=== PATIENT | male | born 1940 | race Caucasian/White ===

== ENCOUNTER 2020-05-25 08:01 | Day surgery (SDC) | payer MEDICARE ==
[2020-05-23 10:58] VITALS: BMI 25.6
[~2020-05-25 08:01] MED LIST: HYDROmorphone 0.5 MG/0.5 ML SYRINGE IVP PRN; MIDAZOLAM 2 MG/2 ML VIAL IV PRN; ONDANSETRON 4 MG/2 ML VIAL IVP ONE
[2020-05-25] MEDS: SODIUM CHLORIDE 0.9% 1,000 ML IV SCH (08:29)
[2020-05-25 08:31] LABS: Glucose,Whole Blood 131 mg/dL (75-99)
[2020-05-25 08:43] LABS: INR 3.7 (<1.2); Prothrombin Time 36.8 sec (9.0-12.0)
[2020-05-25 08:50] LABS: African American GFR (CKD) >90 (>60 ml/min/1.73 sqM); Anion Gap 7 mmol/L; Blood Urea Nitrogen 13 mg/dL (9-20); Carbon Dioxide 25 mmol/L (22-30); Chloride 105 mmol/L (98-107); Glucose 149 mg/dL (74-99); Non-African American GFR(CKD) 80 (>60 ml/min/1.73 sqM); Potassium 4.2 mmol/L (3.5-5.1); Sodium 137 mmol/L (137-145)
[2020-05-25 08:56] LABS: HCT 47.5 % (39.0-53.0); HGB 16.1 gm/dL (13.0-17.5); MCH 35.8 pg (25.0-35.0); MCV 105.5 fL (80.0-100.0); Macrocytosis Moderate; Mean Platelet Volume 7.4; Platelet Count 168 k/uL (150-450); WBC 5.8 k/uL (3.8-10.6)
[2020-05-25 09:25] LABS: Band Neutrophils % 1 %; Eosinophils # (M) 0.06 k/uL (0-0.7); Lymphocytes # (M) 1.04 k/uL (1.0-4.8); Monocytes # (M) 0.52 k/uL (0-1.0); Neutrophils % (M) 71 %; Nucleated Red Blood Cells 0 /100 WBC (0-0); Total Cells Counted 100
[2020-05-25] MEDS ORDERED: PHENYLEPHRINE-0.9% NACL SYG 1 MG/10 ML SYRINGE ONE (10:00)
[2020-05-25] MEDS ORDERED: LIDOCAINE 1% INJ 10MG/ML (20 ML MDV) ONE ×2 (10:00→10:13)
[2020-05-25] MEDS ORDERED: PROTAMINE SULFATE 10 MG/ML 5 ML VIAL IV ONE ×2 (10:00→15:11)
[2020-05-25] MEDS ORDERED: SUCCINYLCHOLINE CHLORIDE 100 MG/5 ML SYR IV ONE (10:00)
[2020-05-25] MEDS ORDERED: fentaNYL (PF) 50 MCG/ML 2 ML AMP ONE (10:00)
[2020-05-25] MEDS ORDERED: PROPOFOL 10 MG/ML 20 ML VIAL IV ONE (10:00)
[2020-05-25] MEDS ORDERED: FUROSEMIDE 10 MG/ML 2 ML VIAL ONE (10:00)
[2020-05-25] MEDS ORDERED: LIDOCAINE 1% INJ 10MG/ML (20 ML MDV) SQ ONE (10:41)
[2020-05-25] MEDS ORDERED: HEPARIN SOD,PORK IN 0.45% NACL 25,000 UNIT in 0.45% NACL 1 250ML.BAG IV ONE (10:42)
[2020-05-25] MEDS ORDERED: HEPARIN SODIUM (1,000 UNIT/ML) 1,000 UNIT in SODIUM CHLORIDE 0.9% 1,000 ML IRRIGATION ONE (10:42)
[2020-05-25] MEDS ORDERED: IOPAMIDOL-250 100ML BTL IV ONE (13:32)
[2020-05-25] MEDS ORDERED: ACETAMINOPHEN TAB 325 MG TAB PO PRN (15:56)
[2020-05-25] MEDS ORDERED: HYDROcodone/APAP 5-325MG 1 EACH TAB PO PRN (15:56)
--- NOTE | 2020-05-25 16:26 | P.PCN ---
Preoperative Diagnosis: Diagnosis Atrial fibrillation, symptomatic, refractory to therapy Atrial tachycardia sustained with RVR Result No left atrial appendage mass seen on intracardiac echo Calcific aortic leaflets with mild stenosis, evaluated during sinus rhythm Successful A. fib ablation/pulmonary vein isolation of all veins using cryo- ablation Complete entrance block in all 4 veins confirmed Transient phrenic nerve paresis, complete recovery RS PV cryoablation completed at an anterolateral level thereafter Focal atrial tachycardia, 8 o'clock position mitral annulus, successful ablation Linear ablation roof of the left atrium Atrial flutter ablation, successful, bidirectional block with differential pacing Esophageal deflection YES Large pulmonary veins Procedure details Patient was brought to the EP lab in a fasting state. Written informed consent was obtained prior to the procedure. Procedure performed under general anesthesia After initial muscle relaxant use, muscle relaxants were not given thereafter in order to assess phrenic nerve during procedure. Patient prepped and draped as per protocol Full cryo-set up with standard preparation of the cryoablation tools done. Femoral Venous access obtained on the right and left groins Venous and arterial Sheaths placed. Diagnostic catheters for the high right atrium, phrenic nerve stimulation and pacing, His bundle, RV and coronary sinus placed Intracardiac echo catheter placed. Long sheath placed in the right atrium Left and right transseptal catheterization performed under intracardiac echo guidance. Intravenous heparin with aCT above 300 Later, catheter positioning and balloon positioning in the left atrium, under intracardiac echo guidance Diagnostic EP study with Coronary sinus pacing and recording High right atrial pacing His bundle pacing Baseline measurements Tachycardia cycle length 234 ms Second tachycardia cycle length 298 ms Sinus cycle length 1146 ms QRS 180 ms right bundle branch block incomplete, QT interval 346 ms AH 86, HV 35 Atrial pacing performed from the high right atrium and the coronary sinus RV pacing AV node Wenckebach block 400 ms VA Wenckebach block 500 ms Sinus node recovery times at 600, 504 100 ms were 1402, 1306 and 1507 milliseconds respectively Transseptal catheterization performed RA pressure 22/6/13 LA pressure 26/6/17 Transseptal catheterization performed with standard sheath. The cryoablation sheath was then placed with an over the wire exchange without any acute complications. All 4 pulmonary veins were isolated in the following sequence: Left superior followed by left inferior followed by right superior followed by right inferior The cryo-ablation balloon was placed at the os of each vein 1.5 mL of IV dye was injected to confirm an occluded vein Goal during cryoablation was to achieve complete occlusion of the pulmonary vein, achieve -30 degrees C at 30 seconds and achieve -40 degrees C at 60 seconds and a time to effect of less than 60-90 seconds, . If not the balloon was repositioned to obtain this result After completion of Cryoblation with durations from 180-240 seconds, entrance block was confirmed with the Attain circular catheter in a roving fashion around the antrum of the pulmonary veins Phrenic nerve pacing was performed from the SVC, right innominate vein area and diaphragm voltage was monitored. Diaphragmatic contractions were also monitored manually for strength of contraction. Parameter goals for each cryo freeze Complete occlusion of the appropriate vein -30 degrees C by 30 seconds -40 degrees C by 60 seconds Minimum between minus 40-55 degrees C Thaw time greater than 10 seconds Balloon visualized by intracardiac echo The esophagus was intubated. Esophageal Temperature monitoring with a CIRCA catheter formed. Esophageal deflection for hypothermia of the esophagus below 30 degrees C Left superior pulmonary vein Complete isolation, entrance block Left inferior pulmonary vein Complete isolation, entrance block Right superior pulmonary vein, during phrenic nerve pacing Transient phrenic nerve paresis, after full recovery, antral level cryo balloon placement and complete isolation achieved without any further phrenic nerve paresis Complete isolation, entrance block Right inferior pulmonary vein, during phrenic nerve pacing Complete isolation, entrance block At the end of the procedure the Achieve catheter was once again used to check for entrance block Phrenic nerve stimulation was performed to confirm diaphragmatic stimulation the end of the procedure Cine fluoroscopy was performed at the very end of the procedure to confirm movement of both diaphragms with inspiration and expiration Patient was an MICRO-REENTRANT atrial tachycardia cycle length 234 ms 3-D electro anatomic mapping performed Focal atrial tachycardia with a secondary sweep around the mitral annulus Long PPI around the mitral annulus PPI within 30 ms at the earliest site of activation consistent with a micro- reentry. Positive entrainment Successful ablation in termination of the tachycardia with a sudden increment in the cycle length to 298 ms 3-D electro-anatomic mapping of the left atrium performed once again. Activation mapping and scar mapping performed A narrow gap in the left atrial roof noted RF ablation performed Later in sinus rhythm line was interrogated and complete scar was noted Entrainment mapping performed for the cavo tricuspid isthmus 3-D electro anatomic mapping performed in the right atrium Typical atrial flutter identified RF ablation in the cavo tricuspid isthmus performed Complete line of block. This line was interrogated with 100% grade and with differential pacing Complete block noted Intracardiac echo revealed absence of any pericardial effusion Calcific aortic valve leaflets but opening well No significant aortic stenosis At the end of the procedure the patient was extubated Heparin was reversed Venous sheaths were removed and hemostasis assured Procedures performed (PVI - CRYO Ablation) Diagnostic EP study CS pacing and recording Left and right transseptal catheterization 3D mapping Intracardiac echocardiography Pulmonary vein isolation with transseptal and comprehensive EPS, [id number] Left atrial roof line, [id number] Focal ablation ablation, left atrium, +[id number] Linear ablation, cavo tricuspid this was/atrial flutter ablation, [id number]
[2020-05-25] MEDS: ACETAMINOPHEN IV (For NPO) 1,000 MG in EMPTY BAG 1 BAG IVPB ONE ×2 (16:30→16:46)
--- NOTE | 2020-05-25 16:30 | P.PRLE ---
RE: Hakan Charles Dear Bola Hakan underwent a diagnostic EP study and successful cryoablation for atrial fibrillation He was in an atrial tachycardia and he had a simultaneous micro-reentrant atrial tachycardia in the left atrium, 8 o'clock position close to the mitral annulus This was successfully ablated However here second simultaneous atrial tachycardia which turned out to be typical atrial flutter and he underwent successful ablation with termination and resumption of sinus rhythm He will continue Coumadin as before I did interrogate his aortic valve with intracardiac echo and I'll the valve was quite calcified leaflets to open reasonably well and he does not have severe aortic stenosis His INR today was 3.7 and he will need an adjustment of his warfarin dose around keep his INR between 2.5-3 especially post ablation I will also ask him to hold his beta blockers for now since he has known underlying sick sinus syndrome Thank you for entrusting me with the care of the patient Warm regards Sincerely Ronni Craig
[2020-05-25 16:53] LABS: Glucose,Whole Blood 144 mg/dL (75-99)
[2020-05-25] MEDS ORDERED: WARFARIN 2.5 MG TAB PO ONE (18:00)
[2020-05-25] MEDS: LACTATED RINGERS 1,000 ML IV SCH (18:08)
[2020-05-25] MEDS ORDERED: ATORVASTATIN 10 MG TAB PO SCH (21:00)
[2020-05-26] MEDS: SODIUM CHLORIDE 0.9% 1,000 ML IV SCH (06:04)
[2020-05-26] MEDS: LACTATED RINGERS 1,000 ML IV SCH (06:04)
--- NOTE | 2020-05-26 07:48 | P.DS ---
Providers Attending physician: Ronni Craig Primary care physician: [facility] Course: Patient is doing well. He is lying comfortably in bed no orthopnea no PND no cough No chest discomfort mild sore throat On examination he has rhonchorous breath sounds bilaterally but he does not appear to be short of breath Ejection systolic murmur over the precordium normal S1 Abdomen soft Extended zone Groins irregular no tenderness no swelling Impression Persistent atrial fibrillation and persistent atrial tachycardia Pulmonary vein isolation of cryoablation Focal ablation of an atrial tachycardia close of the mitral annulus 8 o'clock position Typical atrial flutter ablation with termination of arrhythmia Both these above arrhythmias were occurring simultaneously Linear ablation left atrial roof Sinus bradycardia INR is 3.7 Plan Discharge home this morning Reduce warfarin dose to 5 mg by mouth daily, [address] Craig 12 weeks PT/INR checked that day for Coumadin dose adjustment We will review lipid panel and adjust statin dose Patient Condition at Discharge: Stable Plan - Discharge Summary Discharge Rx Participant: No New Discharge Prescriptions: Discontinued Metoprolol(Unknown Dose) 25 mg PO BID No Action metFORMIN HCL [Glucophage Xr] 500 mg PO BID Simvastatin [Zocor] 20 mg PO HS Finasteride [Proscar] 5 mg PO DAILY Aspirin [Adult Low Dose Aspirin EC] 81 mg PO DAILY Ferrous Sulfate [Feosol] 325 mg PO DAILY Docusate [Colace] 100 mg PO Q2D Coumadin(Unknown Dose) 1.5 tab PO MOWEFR Coumadin(Unknown Dose) 1 tab PO SUTUTHSA Discharge Medication List Aspirin [Adult Low Dose Aspirin EC] 81 mg PO DAILY 02/21/16 [History] Finasteride [Proscar] 5 mg PO DAILY 02/21/16 [History] Simvastatin [Zocor] 20 mg PO HS 02/21/16 [History] metFORMIN HCL [Glucophage Xr] 500 mg PO BID 02/21/16 [History] Coumadin(Unknown Dose) 1 tab PO SUTUTHSA 05/23/20 [History] Coumadin(Unknown Dose) 1.5 tab PO MOWEFR 05/23/20 [History] Docusate [Colace] 100 mg PO Q2D 05/23/20 [History] Ferrous Sulfate [Feosol] 325 mg PO DAILY 05/23/20 [History] Follow up Appointment(s)/Referral(s): Ronni Craig MD [STAFF PHYSICIAN] - 2 Weeks Activity/Diet/Wound Care/Special Instructions: Post EP study - Ablation instructions 1. Keep access sites dry for 2 days. 2. No heavy lifting or straining for 2 days. 3. Avoid bending the hips repeatedly for 2 days. 4. You may go up and down stairs slowly Call if the following is noted 1. Bleeding, increasing swelling or pain at the access sites. 2. Increasing chest discomfort, especially upon taking a deep breath. 3. Increasing shortness of breath, at rest or with exertion. 4. Undue cough / phlegm 5. Difficulty or pain while swallowing. 6. Pain or change in color in the extremities. 7. Fever, chills, rigors. 8. Increasing headache or neurologic symptoms. 9. Dizziness, fainting, palpitations Hold metoprolol Continue all other medications Continue Coumadin/warfarin the lower dose of 1 tablet daily PT/INR check in a week Discharge Disposition: HOME SELF-CARE
[2020-05-26 08:18] VITALS: BP 97/57; PULSE 69; RESP 18; TEMP 98
[2020-05-26] MEDS ORDERED: FINASTERIDE 5 MG TAB PO SCH (09:00)
[2020-05-26] MEDS ORDERED: ASPIRIN 81 MG PO SCH (09:00)
[2020-05-26 11:33] LABS: INR 3.2 (<1.2); Prothrombin Time 31.4 sec (9.0-12.0)
[2020-05-26 11:36] LABS: Calcium 9.1 mg/dL (8.4-10.2); Potassium 4.1 mmol/L (3.5-5.1)
[2020-05-27] MEDS ORDERED: metFORMIN 500 MG TAB PO SCH (21:00)
== END 2020-05-26 11:34 | disposition home or self-care (01) ==
LOC: CATHEP 08:01 → 1SOBS 15:42 → CATHEP 05-26 11:34
PROVIDERS: ATTEND Internal Medicine Clinical Cardiac Electrophysiology
DX: I48.19 Other persistent atrial fibrillation (principal); I47.1 Supraventricular tachycardia; I35.0 Nonrheumatic aortic (valve) stenosis; I49.5 Sick sinus syndrome; I45.10 Unspecified right bundle-branch block; I10 Essential (primary) hypertension; E78.5 Hyperlipidemia, unspecified; E11.9 Type 2 diabetes mellitus without complications; M19.90 Unspecified osteoarthritis, unspecified site; F17.210 Nicotine dependence, cigarettes, uncomplicated; Z79.84 Long term (current) use of oral hypoglycemic drugs; Z79.82 Long term (current) use of aspirin; Z79.01 Long term (current) use of anticoagulants; Z79.899 Other long term (current) drug therapy; Z88.0 Allergy status to penicillin; Z98.890 Other specified postprocedural states
CPT/HCPCS: 85347; 93662; 93613; 93656; 93657; 80061; 80048 ×2; 85025; 85610 ×2; C1769 ×5; C1894 ×2; C1730 ×2; C1759; C1893; C1733; C1766; C1732; S0138; J2720; J1940; J2001; J3010; J1644 ×2; J0131; J2370; J0330; J2704; Q9966

== ENCOUNTER → 2020-06-05 | Outpatient (CLI) | payer MEDICARE ==
--- NOTE | 2020-06-05 15:42 | CT ---
EXAMINATION TYPE: CT angio chest DATE OF EXAM: 06/05/2020 3:13 PM COMPARISON: None. HISTORY: Coughing up blood post cardiac ablation x10 days ago. CT DLP: 792 mGycm Automated exposure control for dose reduction was used. CONTRAST: CTA scan of the thorax is performed without and with IV Contrast, patient injected with 100ml mL of I sovue 370, aneurysm protocol. 3D reconstructed images are created on an independent workstation and reviewed.. FINDINGS: LUNGS: Asymmetric groundglass opacity and reticulation in the left lower lobe versus the opposite rig ht side. Small 9 mm nodule or organizing nodular consolidation left lower lobe axial image 50. Backgr ound Mild underlying emphysematous change. There is no pleural effusion or pneumothorax seen. The t racheobronchial tree is patent. MEDIASTINUM: There is satisfactory enhancement of the central pulmonary arteries. Ascending aorta perla sures up to 3.5 cm in diameter. Satisfactory enhancement of the aorta without aneurysm or dissection. Noncontrast images show no suspicious intramural hematoma. Normal three-vessel origin from the aorti c arch. There are prominent but subcentimeter bilateral hilar and mediastinal lymph nodes. No defini tive greater than 1 cm adenopathy. No cardiomegaly or pericardial effusion is seen. Mild to moderate coronary artery calcification is present. OTHER: Simple appearing 2.8 cm thin-walled cyst anteriorly in the left kidney upper to mid pole leve l. Multilevel spurring in the spine. IMPRESSION: 1. No thoracic aortic dissection. No suspicious parathoracic fluid or new pneumomediastinum. 2. Asymmetric posterior groundglass opacity and reticulation in the left lower lobe could reflect luke eolar hemorrhage and/or edema.
== END | disposition home or self-care (01) ==
LOC: RADCTMAIN 14:14
PROVIDERS: ATTEND Nurse Practitioner Adult Health
DX: R91.8 Other nonspecific abnormal finding of lung field (principal); R04.2 Hemoptysis; Z98.890 Other specified postprocedural states
CPT/HCPCS: 71275; Q9967

== ENCOUNTER 2022-12-10 07:31 | Day surgery (SDC) | payer MEDICARE ==
[~2022-12-10 07:31] MED LIST changes: +ALPRAZolam 0.25 MG TAB PO PRN; +ALPRAZolam 0.5 MG TAB PO PRN; +ASPIRIN 325 MG TAB PO ONE; -HYDROmorphone 0.5 MG/0.5 ML SYRINGE IVP PRN; -MIDAZOLAM 2 MG/2 ML VIAL IV PRN; +NITROGLYCERIN SL TABS 0.4 MG TAB SUBLINGUAL PRN; -ONDANSETRON 4 MG/2 ML VIAL IVP ONE; +SODIUM CHLORIDE 0.9% 1,000 ML in EMPTY BAG 1 BAG IV SCH
[2022-12-10] MEDS ORDERED: SODIUM CHLORIDE 0.9% 1,000 ML IV ONE (07:36)
[2022-12-10 07:57] VITALS: RESP 16; TEMP 97.1
[2022-12-10 08:01] LABS: Glucose,Whole Blood 133 mg/dL (70-110)
[2022-12-10 08:02] LABS: HCT 40.4 % (39.0-53.0); HGB 13.7 gm/dL (13.0-17.5); MCH 36.1 pg (25.0-35.0); MCV 106.3 fL (80.0-100.0); Macrocytosis Moderate; Mean Platelet Volume 8.3; Platelet Count 135 k/uL (150-450); RDW 14.1 % (11.5-15.5); WBC 4.9 k/uL (3.8-10.6)
[2022-12-10 08:15] LABS: African American GFR (CKD) >90 (>60 ml/min/1.73 sqM); Anion Gap 8 mmol/L; Blood Urea Nitrogen 15 mg/dL (9-20); Calcium 9.6 mg/dL (8.4-10.2); Carbon Dioxide 22 mmol/L (22-30); Chloride 106 mmol/L (98-107); Glucose 134 mg/dL (74-99); Non-African American GFR(CKD) 84 (>60 ml/min/1.73 sqM); Sodium 136 mmol/L (137-145)
[2022-12-10 08:22] LABS: Potassium 4.9 mmol/L (3.5-5.1)
[2022-12-10 08:33] LABS: Band Neutrophils % 2 %; Lymphocytes # (M) 0.98 k/uL (1.0-4.8); Neutrophils % (M) 74 %; Nucleated Red Blood Cells 0 /100 WBC (0-0); Total Cells Counted 100
[2022-12-10 08:35] LABS: Anisocytosis (M) Present; Poikilocytosis (M) Present
[2022-12-10] MEDS ORDERED: VERAPAMIL 2.5 MG/ML 2 ML AMP ONE (10:10)
[2022-12-10] MEDS ORDERED: LIDOCAINE 1% INJ 10MG/ML (20 ML MDV) ONE (10:10)
[2022-12-10] MEDS ORDERED: fentaNYL (PF) 50 MCG/ML 2 ML AMP ONE (10:33)
[2022-12-10] MEDS: BENZOCAINE SPRAY 1 CAN TOPICAL ONE ×2 (10:34→10:42)
[2022-12-10] MEDS: MIDAZOLAM 2 MG/2 ML VIAL IV ONE ×3 (10:42→10:45)
[2022-12-10] MEDS: fentaNYL (PF) 50 MCG/ML 2 ML AMP IV ONE ×2 (10:42→10:43)
[2022-12-10] MEDS ORDERED: IV FLUID CONTINUATION 200 ML IV ONE (10:53)
--- NOTE | 2022-12-10 11:01 | P.TEE ---
Description of Procedure(s): Procedure performed: Transesophageal Echocardiogram with color flow doppler, pulsed wave doppler and continuous wave doppler, moderate conscious sedation Moderate conscious sedation: Moderate conscious sedation was supplied with direct supervision of myself using Versed and Fentanyl. Complications: none Indications: Severe aortic stenosis PROCEDURE: After the risks, benefits and alternatives of the above mentioned procedure was explained in detail with the patient, informed consent was obtained. Patient was brought to the lab in a fasting state. Patient was given IV Versed and Fentanyl for sedation. The throat was sprayed with Hurricane to anesthetize the throat. A lubricated Omni probe was then introduced into the esophagus and stomach and multiple views were obtained. 2D echo with color flow doppler, pulsed wave doppler and continuous wave doppler was utilized. Agitated saline bubbles were injected to assess for any intra-atrial shunt. The probe was then removed. Patient tolerated the procedure well. Patient was transferred to the post procedure area in stable and satisfactory condition. FINDINGS: 1. The aortic valve is tested with severe aortic stenosis with aortic valve area 0.5 cm by planimetry however likely obscured by calcification. Mild llambl's excrescence. 2. The mitral valve appears be normal with mild mitral regurgitation. 3. Tricuspid valve appears to be normal. 4. The interatrial septum is intact. No evidence of PFO. 5. Left atrial appendage is free of clot. 6. Left ventricular ejection fraction is 55-60%.
[2022-12-10] MEDS ORDERED: LIDOCAINE 1% INJ 10MG/ML (20 ML MDV) SQ ONE (11:07)
[2022-12-10] MEDS ORDERED: VERAPAMIL SYRINGE (5 MG/10 ML) INTRAARTER ONE (11:08)
[2022-12-10] MEDS ORDERED: HEPARIN SODIUM 1,000 UN/ML (10ML VL) ONE (11:20)
[2022-12-10] MEDS ORDERED: HEPARIN SODIUM 1,000 UN/ML (10ML VL) IV ONE (11:22)
[2022-12-10] MEDS ORDERED: IOPAMIDOL-370 100ML BTL INJ ONE (11:34)
[2022-12-10 11:35] LABS: O2 Sat Blood Gas 72.6 %
[2022-12-10 11:37] LABS: O2 Sat Blood Gas 94.8 %
--- NOTE | 2022-12-10 13:31 | P.CARDCATH ---
Description of Procedure: PROCEDURES PERFORMED: Right heart catheterization, bilateral coronary angiography, ultrasound guided arterial access INDICATION: Aortic stenosis CONSENT:I have discussed the risks, benefits and alternative therapies for the above-mentioned procedure and for both sedation/analgesia as well as necessary blood product administration, if indicated, as they pertain to this patient. The patient has indicated understanding and acceptance of the risks and procedures discussed. PROCEDURE: After the risks, benefits and alternatives of the above mentioned procedure explained in detail with the patient, informed consent was obtained. Patient was taken to the catheterization lab and prepped and draped in usual fashion. Ultrasound guidance was used to assess for arterial access. 1% lidocaine was used to anesthetize the right radial artery. A 6-Tongan sheath was placed in the right radial artery using modified Seldinger technique and ultrasound guidance as well as in the right brachial vein. A 6-Tongan [place]-Shahid catheter was inserted into the right atrium, right ventricle, pulmonary artery and pulmonary capillary wedge pressure positions and pressure measurements and oxygen saturations were obtained. Thermodilution was performed. Left coronary angiography was performed with a 5-Tongan JL 3.5 catheter and right coronary angiography was performed with a 5-Tongan JR5 catheter in various views. The valve was not crossed secondary to diffuse calcification on JEANETTE. The right radial sheath was removed and a TR band was placed with hemostasis achieved. The patient tolerated the procedure well. Patient was transported back to the post catheterization holding area in stable condition. Conscious Sedation: Patient was monitored under the direct supervision of myself for conscious sedation using Versed and fentanyl for a total duration of 27 minutes HEMODYNAMICS: Aorta: 141/69 RA: 4 RV: 45/1, RVEDP 7 PA: 50/24, mean 34 PCWP: 22 RA oxygen saturation: 73% PA oxygen saturation: 70% Right radial oxygen saturation: 95% Cardiac output by Baron: 7.78 L/m Cardiac index by Baron: 3.8 L/m/m Cardiac output by thermodilution: 5.5 L/m Cardiac index by thermodilution: 2.7 L/m/m SELECTIVE CORONARY ARTERIOGRAPHY: LEFT MAIN: The left main is a large caliber vessel which bifurcates into the LAD and circumflex. There is no significant stenosis. LEFT ANTERIOR DESCENDING CORONARY ARTERY: LAD is a large caliber vessel which wraps around to the apex. There is no significant stenosis. LEFT CIRCUMFLEX CORONARY ARTERY: Left circumflex is a moderate caliber vessel without significant stenosis. RIGHT CORONARY ARTERY: The right coronary artery is a large caliber vessel which gives off a PDA and PLV branch and is the dominant vessel. There is no significant stenosis. FINAL IMPRESSION: 1. Normal coronary arteries as described above. 2. Elevated left sided filling pressure/ PCWP PLAN: 1. Aggressive risk factor modification per most recent ACC/AHA guidelines. 2. Follow-up in the office in 1-2 weeks.
[2022-12-10 15:49] VITALS: BP 120/58; PULSE 56
== END 2022-12-10 16:37 | disposition home or self-care (01) ==
LOC: CATHCVL 07:31
PROVIDERS: ATTEND Internal Medicine
DX: I08.0 Rheumatic disorders of both mitral and aortic valves (principal); I48.0 Paroxysmal atrial fibrillation; I45.10 Unspecified right bundle-branch block; I49.5 Sick sinus syndrome; I10 Essential (primary) hypertension; E11.9 Type 2 diabetes mellitus without complications; E78.5 Hyperlipidemia, unspecified; F17.210 Nicotine dependence, cigarettes, uncomplicated; Z79.01 Long term (current) use of anticoagulants; Z79.84 Long term (current) use of oral hypoglycemic drugs; Z79.899 Other long term (current) drug therapy; Z88.0 Allergy status to penicillin
CPT/HCPCS: 93456; 93312; 93320; 93325; 76937; 80048; 85018; 82810; 85025; 99152; 99153; C1769; C1894; C1751; J2250; J2001; J3010; J1644; Q9967

== ENCOUNTER → 2022-12-26 | Outpatient (CLI) | payer MEDICARE ==
[2022-12-26 10:43] LABS: Appearance,Urine Clear (Clear); Bilirubin,Urine Negative (Negative); Blood,Urine Negative (Negative); Color,Urine Yellow; Glucose,Urine (UA) Negative (Negative); Ketones,Urine Negative (Negative); Leukocyte Esterase,Urine Negative (Negative); Nitrite,Urine Negative (Negative); PH, Urine 5.5 (5.0-8.0); Protein,Urine Negative (Negative); Specific Gravity,Urine 1.016 (1.001-1.035)
[2022-12-26 10:54] LABS: ALT 16 U/L (4-49); AST 20 U/L (17-59); African American GFR (CKD) 87 (>60 ml/min/1.73 sqM); Albumin 4.2 g/dL (3.5-5.0); Albumin/Globulin Ratio 1.4; Alkaline Phosphatase 85 U/L (38-126); Anion Gap 8 mmol/L; Blood Urea Nitrogen 19 mg/dL (9-20); Calcium 10.1 mg/dL (8.4-10.2); Carbon Dioxide 24 mmol/L (22-30); Chloride 105 mmol/L (98-107); Glucose 120 mg/dL (74-99); Magnesium 1.8 mg/dL (1.6-2.3); Non-African American GFR(CKD) 76 (>60 ml/min/1.73 sqM); Potassium 4.6 mmol/L (3.5-5.1); Sodium 137 mmol/L (137-145); Total Bilirubin 0.7 mg/dL (0.2-1.3); Total Protein 7.2 g/dL (6.3-8.2)
[2022-12-26 11:03] LABS: NT-Pro-B-Type Natriuretic Pept 238 pg/mL
[2022-12-26 11:05] LABS: HCT 40.1 % (39.0-53.0); HGB 13.1 gm/dL (13.0-17.5); INR 0.9 (<1.2); MCH 34.7 pg (25.0-35.0); MCHC 32.7 g/dL (31.0-37.0); MCV 106.2 fL (80.0-100.0); Macrocytosis Moderate; Partial Thromboplastin Time 26.6 sec (22.0-30.0); Platelet Count 163 k/uL (150-450); RBC 3.78 m/uL (4.30-5.90); RDW 14.1 % (11.5-15.5)
--- NOTE | 2022-12-26 12:28 | CT ---
EXAMINATION TYPE: CT TAVR Planning DATE OF EXAM: 12/26/2022 HISTORY: Nonrheumatic aortic (valve) insufficiency CT DLP: 1797.1 mGycm Automated Exposure Control for Dose Reduction was Utilized. CONTRAST: CT scan of the chest, abdomen and pelvis is performed with IV Contrast, patient injected with 125 mL of Isovue 370. COMPARISON: The 2019 TECHNIQUE: Helical imaging obtained through the chest, abdomen and pelvis during arterial phase juliana vero administration of radiographic contrast intravenously. FINDINGS: See report from [facility] regarding preprocedural planning Atherosclerosis of the arterial vasculature. The ascending thoracic aorta measures up to 3.6 cm. No f illing defect within the pulmonary arterial vasculature is suggestive pulmonary embolus. There is sev ere calcifications of the aortic valve leaflets. There is atherosclerotic disease involving the common iliac and external iliac arteries which is mild -to-moderate. No significant stenosis of these arteries. Common femoral arteries are patent. CHEST: Lower Neck and Thyroid: No significant findings Lungs: No focal consolidation, pneumothorax or pleural effusion. Mild centrilobular emphysema changes throughout the lungs. Central Airway: No significant findings Pleura: No significant findings Heart and Pericardium: No significant findings Lymph Nodes: No significant findings Mediastinum & Esophagus: No significant findings ABDOMEN/PELVIS: Please note arterial phase of the imaging limits detailed evaluation of the solid abdominal organs. Liver: No significant findings Spleen: No significant findings Kidneys: Multiple left renal cysts. Adrenal Glands: No significant finding Pancreas: No significant findings Gallbladder: No significant findings Bowel and Mesentery: Few scattered colonic diverticula present. Appendix is normal. Lymph Nodes: No significant findings Urinary Bladder: No significant findings Pelvic Organs: No significant findings Other: Prostate gland is enlarged measuring 5.6 mm in transverse dimension. Bilateral Other Lines/Tubes/Devices/Hardware: None IMPRESSION: 1. Severe aortic valve leaflet calcifications. Mild to moderate atherosclerosis arterial vasculature . 2. Mild atherosclerosis of the arterial vasculature. 3. Prostatomegaly correlation PSA. 4. Colonic diverticulosis.
[2022-12-26 13:58] LABS: Basophils # (M) 0.04 k/uL (0-0.2); Eosinophils # (M) 0.04 k/uL (0-0.7); Lymphocytes # (M) 0.72 k/uL (1.0-4.8); Monocytes # (M) 0.44 k/uL (0-1.0); Neutrophils # (M) 2.76 k/uL (1.3-7.7); Neutrophils % (M) 69 %; Nucleated Red Blood Cells 0 /100 WBC (0-0); Total Cells Counted 100
[2022-12-26 16:46] LABS: Chol/HDL Ratio 2.54 Ratio; LDL Cholesterol,Calculated 54.5 mg/dL (0.0-131.0); VLDL Calculation 9.82 mg/dL (5.00-40.00)
[2022-12-26 16:52] LABS: Hepatitis A Antibody IgM Nonreactive; Hepatitis B Core IgM Nonreactive; Hepatitis B Surface Antigen Nonreactive; Hepatitis C IgG Antibody Nonreactive
== END | disposition home or self-care (01) ==
LOC: LABWHC1 09:33
PROVIDERS: ATTEND Thoracic Surgery (Cardiothoracic Vascular Surgery)
DX: Z01.818 Encounter for other preprocedural examination (principal); I35.1 Nonrheumatic aortic (valve) insufficiency; Z51.81 Encounter for therapeutic drug level monitoring; I35.0 Nonrheumatic aortic (valve) stenosis; E87.8 Other disorders of electrolyte and fluid balance, not elsewhere classified; Z79.899 Other long term (current) drug therapy; E11.9 Type 2 diabetes mellitus without complications; N28.9 Disorder of kidney and ureter, unspecified; E78.5 Hyperlipidemia, unspecified; E07.9 Disorder of thyroid, unspecified; R58 Hemorrhage, not elsewhere classified; R35.0 Frequency of micturition; Z79.01 Long term (current) use of anticoagulants
CPT/HCPCS: 94150; 83880; 80061; 80053; 80074; 84443; 83735; 85025; 85610; 85730; 81003; 87086; 83036; 71275; 74174; 93005; 36415; Q9967

== ENCOUNTER 2024-04-12 16:18 | Day surgery (SDC) | payer MEDICARE ==
[2024-04-12] MEDS: SODIUM CHLORIDE 0.9% 1,000 ML IV SCH (16:51)
[2024-04-12 17:08] LABS: Glucose,Whole Blood 98 mg/dL (70-110)
[2024-04-12] MEDS: IV FLUID CONTINUATION 1,000 ML IV ONE (17:11)
[2024-04-12 17:14] VITALS: BP 141/63; PULSE 52; RESP 16; TEMP 98
[2024-04-12] MEDS: ROPIVACAINE 5 MG/ML 30 ML VIAL MISCELLANE ONE (19:30)
[2024-04-12] MEDS: LIDOCAINE 1% INJ 10MG/ML (20 ML MDV) SQ ONE (19:30)
--- NOTE | 2024-04-12 19:56 | P.EPPROC ---
- EP Procedure Note Electrophysiology Procedure Note: Loop monitor implant Primary physicians: Rice Dryer Mechanic: Dr. Craig Indication: Sick sinus syndrome IVCD, atrial fibrillation Patient was brought to the EP lab in a fasting state. Written informed consent was obtained prior to the procedure. The left pectoral area was prepped and draped per protocol. Intravenous antibiotic was administered preoperatively. A subcutaneous Loop monitor was implanted successfully and the wound was closed per protocol. The device was programmed to detect significant sergey- arrhythmic and tachy-arrhythmic events, per protocol. Device and programming details: Bradycardia and atrial fibrillation management
== END 2024-04-12 19:50 | disposition home or self-care (01) ==
LOC: CATHEP 16:18
PROVIDERS: ATTEND Internal Medicine Clinical Cardiac Electrophysiology
DX: R55 Syncope and collapse (principal)
CPT/HCPCS: 33285